=== PATIENT | female | born 2005 | race Caucasian/White ===

== ENCOUNTER 2024-05-04 16:58 | Emergency (ER) | payer OTHER ==
[~2024-05-04] VITALS: Ht 172.7 cm; Wt 115.9 kg
[~2024-05-04 16:58] MED LIST: CEPHALEXIN500 M1 PO; ZOFRAN 4MG T4 MG/TAB PO
[2024-05-04 17:08] VITALS: TEMP 98.9
[2024-05-04] MEDS ORDERED: LR 1,000 ML IV ONE (19:15)
[2024-05-04] MEDS ORDERED: dexAMETHasone 10 MG/ML VIAL IV ONE (19:15)
[2024-05-04] MEDS ORDERED: Ketorolac 15 MG/ML VIAL IV ONE (19:15)
[2024-05-04] MEDS ORDERED: Ketorolac 15 MG/ML VIAL IM ONE (20:30)
[2024-05-04] MEDS ORDERED: dexAMETHasone 10 MG/ML VIAL IM ONE (20:45)
[2024-05-04 21:29] LABS: BASO % 0.4 % (0.0-2.0); EOS # 0.3 K/mm3 (0.0-0.7); EOS % 2.5 % (0.0-4.0); GRAN # 6.6 K/mm3 (1.4-6.5); GRAN % 61.2 % (42.2-75.2); HEMATOCRIT 40.3 % (35.0-45.0); LYMPH % 27.5 % (20.0-51.0); MEAN CELL VOLUME 87 fl (80.0-95.0); MEAN CORPUSCULAR HEMOGLOBIN 30 pg (26-32); MEAN CORPUSCULAR HGB CONC 35 g/dl (33.0-37.0); MEAN PLATELET VOLUME 10.1 fl (7.4-10.4); MONO # 0.9 K/mm3 (0.1-0.6); MONO % 8.1 % (1.7-9.3); PLATELET COUNT 289 K/mm3 (130-400); RED BLOOD COUNT 4.65 M/mm3 (4.10-5.30); REDCELL DISTRIBUTION WIDTH-CV 12.7 % (11.5-14.5)
[2024-05-04 21:42] LABS: COLLECTION METHOD CLEAN CATCH
[2024-05-04 21:47] LABS: ALBUMIN 4.3 g/dL (3.5-5.0); BILIRUBIN,TOTAL 0.4 mg/dL (0.2-1.2); CALCIUM 9.5 mg/dL (8.4-10.2); CREATININE, serum 0.62 mg/dL (0.57-1.11); POTASSIUM 3.7 mEq/L (3.5-4.5); TOTAL PROTEIN 7.7 g/dl (6.2-8.1)
[2024-05-04 21:50] LABS: URINE APPEARANCE CLEAR (CLEAR/HAZY); URINE BLOOD NEGATIVE (NEGATIVE); URINE COLOR YELLOW (YELLOW); URINE GLUCOSE NEGATIVE (NEGATIVE); URINE KETONE NEGATIVE (NEGATIVE); URINE NITRATE NEGATIVE (NEGATIVE); URINE PROTEIN(semi-quant) NEGATIVE (NEGATIVE); URINE UROBILINOGEN 0.2 E.U/dL (0.2-1.0)
[2024-05-04 22:06] LABS: TSH w REFLEX 2.468 uIU/mL (0.350-4.940)
[2024-05-04 22:44] LABS: GLUCOSE,CSF 48 mg/dL (40-70); TOTAL PROTEIN,CSF 35 mg/dL (15-45)
[2024-05-04 22:52] LABS: CSF APPEARANCE CLEAR; CSF COLOR COLORLESS; CSF RBC 268 /mm3 (0-0)
[2024-05-04 22:53] LABS: CSF APPEARANCE CLEAR; CSF COLOR COLORLESS; CSF RBC 5 /mm3 (0-0)
[2024-05-04 23:07] LABS: CSF MONONUCLEAR 73 % (70-100); CSF POLYMORPHONUCLEAR 27 % (0-6)
[2024-05-04] MEDS ORDERED: CEPHALEXIN500 M1 PO (23:07)
[2024-05-04 23:09] LABS: CSF MONONUCLEAR 100 % (70-100); CSF POLYMORPHONUCLEAR 0 % (0-6)
[2024-05-04] MEDS ORDERED: Cephalexin 500 MG CAP PO ONE (23:15)
[2024-05-04 23:37] VITALS: BP 127/80; PULSE 66
== END 2024-05-04 23:37 | disposition home or self-care (01) ==
LOC: COL.ER 16:58
PROVIDERS: Emergency Medicine
DX: N39.0 Urinary tract infection, site not specified (principal); R51.9 Headache, unspecified; M54.2 Cervicalgia
CPT/HCPCS: J0780; J1100; J1885

== ENCOUNTER 2024-05-08 11:07 | Emergency (ER) | payer OTHER ==
[~2024-05-08] VITALS: Ht 172.7 cm; Wt 115.9 kg
[2024-05-08 11:25] VITALS: TEMP 97.6
[2024-05-08] MEDS ORDERED: Ketorolac 30 MG/ML VIAL IV ONE (12:15)
[2024-05-08] MEDS ORDERED: Ondansetron 4 MG/2 ML VIAL IV ONE (12:15)
[2024-05-08] MEDS ORDERED: NS 1,000 ML IV ONE (12:15)
[2024-05-08 12:31] LABS: BASO % 0.3 % (0.0-2.0); EOS # 0.1 K/mm3 (0.0-0.7); EOS % 0.6 % (0.0-4.0); GRAN # 9.7 K/mm3 (1.4-6.5); HEMATOCRIT 42.1 % (35.0-45.0); HEMOGLOBIN 14.2 g/dl (12.0-15.0); LYMPH # 1.5 K/mm3 (1.2-3.4); LYMPH % 12.1 % (20.0-51.0); MEAN CELL VOLUME 89 fl (80.0-95.0); MEAN CORPUSCULAR HEMOGLOBIN 30 pg (26-32); MEAN CORPUSCULAR HGB CONC 34 g/dl (33.0-37.0); MEAN PLATELET VOLUME 10.6 fl (7.4-10.4); MONO # 0.7 K/mm3 (0.1-0.6); MONO % 5.7 % (1.7-9.3); PLATELET COUNT 296 K/mm3 (130-400); RED BLOOD COUNT 4.75 M/mm3 (4.10-5.30); REDCELL DISTRIBUTION WIDTH-CV 12.5 % (11.5-14.5)
[2024-05-08 12:40] LABS: ALBUMIN 4.2 g/dL (3.5-5.0); BILIRUBIN,TOTAL 0.5 mg/dL (0.2-1.2); C-REACTIVE PROTEIN 0.26 mg/dL (0.00-0.50); CALCIUM 9.7 mg/dL (8.4-10.2); CREATININE, serum 0.67 mg/dL (0.57-1.11); POTASSIUM 4.1 mEq/L (3.5-4.5); TOTAL PROTEIN 7.7 g/dl (6.2-8.1)
[2024-05-08 15:30] VITALS: BP 123/50
[2024-05-08 15:46] VITALS: PULSE 55
== END 2024-05-08 16:03 | disposition home or self-care (01) ==
LOC: COL.ER 11:07
PROVIDERS: Emergency Medicine
DX: G97.1 Other reaction to spinal and lumbar puncture (principal)
CPT/HCPCS: J1885; J2405; J7030